=== PATIENT | female | born 1950 | race Caucasian/White ===

== ENCOUNTER 2021-01-07 13:40 | Outpatient (CLI) | payer MEDICARE | END 2021-01-07 13:41 | disposition home or self-care (01) | LOC: CSHRAD 13:40 | PROVIDERS: ATTEND Internal Medicine | DX: R05.9 Cough, unspecified (principal); M47.815 Spondylosis without myelopathy or radiculopathy, thoracolumbar region; M41.85 Other forms of scoliosis, thoracolumbar region; Z98.890 Other specified postprocedural states | CPT/HCPCS: 71046 ==

== ENCOUNTER 2021-10-26 10:40 | Outpatient (CLI) | payer MEDICARE | END 2021-10-26 10:41 | disposition home or self-care (01) | LOC: CSHCT 10:40 | PROVIDERS: ATTEND Internal Medicine Pulmonary Disease | DX: J18.8 Other pneumonia, unspecified organism (principal); J98.11 Atelectasis | CPT/HCPCS: 71250 ==